=== PATIENT | male | born 1950 | race Caucasian/White ===

== ENCOUNTER 2017-04-05 00:25 | Inpatient (IN) | payer BC ==
--- NOTE | ~2017-04-05 | HP ---
History And Physical [place] [id number] [facility] [place]. [address] NAME: ASHLEY LOZANO SR : 54 STATUS : ADM IN LOCATED WITHIN [facility]#: [id number] AGE: 66 ADM/REG DATE : 04/05/17 MR#: [id number] REPORT SERV DATE: 04/05/17 DICTATED BY: SALLY BAZAN JR. DATE: 04/05/17 REPORT STATUS : Draft TRANSCRIBED BY: STEPHANIE DATE: 04/05/17 DATE OF ADMISSION: 04/05/2017 CHIEF COMPLAINT: Chest pain. HISTORY OF PRESENT ILLNESS: Kwan is a 66-year-old white male with diabetes and hypertension. He has had precordial chest pain for the last two days. He thought it might be heartburn or a muscle pull. It got worse around dinnertime tonight, finally prompting ER presentation. On arrival, the patient was found to have an inferoposterior MN consistent with ST elevation myocardial infarction. STEMI protocol was employed. PAST MEDICAL HISTORY: He has hypertension and insulin-requiring diabetes. He denies hyperlipidemia, renal insufficiency, prior TIA, or stroke. ALLERGIES: ARE DENIED. CURRENT MEDICATIONS: Please see his home medication sheet, which was reviewed. SOCIAL HISTORY: He does not use tobacco products, abuse alcohol, or use recreational drugs. FAMILY HISTORY: Negative for premature vascular events. REVIEW OF SYSTEMS: He denies fever, chills, bleeding diathesis, sudden weight gain or weight loss. Remainder of his HPI is negative. PHYSICAL EXAMINATION: GENERAL: Uncomfortable male, but in no acute distress. HEENT: Anicteric, no scleral injection, no oral lesions. NECK: No JVD, supple, no bruits. LUNGS: Clear to auscultation. No hyperexpansion. CARDIOVASCULAR: Regular rate and rhythm with no murmur, rub or gallop. ABDOMEN: Soft, nontender. Normoactive bowel sounds, no hepatosplenomegaly. EXTREMITIES: No clubbing, cyanosis or edema. SKIN: No visible rashes. NEURO/PSY: Normal affect, alert and oriented x 3. VITAL SIGNS: Blood pressure 153/88, heart rate 59, respirations 16. EKG: EKG reveals inferoposterior MN. MEDICAL DECISION MAKIN. Late-presentation inferoposterior MN. The patient has had symptoms for [address] elevation consistent with STEMI. He has persistent chest pain. Because of this, he will be taken emergently to the cardiac catheterization laboratory for coronary angiography and percutaneous intervention. The risks were verbally explained and verbally accepted. History And Physical [address] [address] NAME: ASHLEY LOZANO SR : 54 STATUS : ADM IN LOCATED WITHIN [facility]#: [id number] AGE: 66 ADM/REG DATE : 04/05/17 MR#: [id number] REPORT SERV DATE: 04/05/17 DICTATED BY: SALLY BAZAN JR. DATE: 04/05/17 REPORT STATUS : Draft TRANSCRIBED BY: STEPHANIE DATE: 04/05/17 2. Mixed hyperlipidemia. We will institute intensive statin therapy. 3. Diabetes type 2. We will adjust medicines as needed during the hospital stay. 4. Hypertension. We will adjust medications as needed during the hospital stay. ELVA/LISETHL Sally Bazan Jr., M.D. / [id number] CC: Vinod Simms Jr., M.D.
[~2017-04-05 00:25] MED LIST: ALEVE220 MG PO; APRES25 PO; ASAB PO; GLUCOPHAGE1000 MG PO; LANTUS SC; NEUR300 PO; NEUR600 PO; NORV10 PO; NORV5 PO; PREV30 PO; PRIN20 PO; TOPXL25 PO; TOPXL50 PO
[2017-04-05] MEDS ORDERED: PREV30 PO (00:35)
[2017-04-05] MEDS ORDERED: GLUCOPHAGE1000 MG PO (00:35)
[2017-04-05] MEDS ORDERED: NEUR300 PO (00:35)
[2017-04-05] MEDS ORDERED: LANTUS SC (00:35)
[2017-04-05 00:37] LABS: BASOPHILS 0.4 %; BASOPHILS ABSOLUTE 0.07 10/3/uL (0.0-0.16); EOSINOPHILS 1.3 %; EOSINOPHILS ABSOLUTE 0.22 10/3/uL (0.0-0.53); HEMATOCRIT 42.5 % (40.0-51.0); HEMOGLOBIN 15.2 g/dL (13.6-17.8); IMMATURE GRANULOCYTES 0.4 %; LYMPHOCYTES 13.4 %; LYMPHOCYTES ABSOLUTE 2.22 10/3/uL (0.67-4.30); MEAN CORPUS HGB CONC 35.8 g/dL (32.0-36.0); MEAN CORPUSCULAR HEMOGLOB 31.2 pg (26.0-34.0); MEAN CORPUSCULAR VOLUME 87.3 fL (80-100); MEAN PLATELET VOLUME 10.7 fL (9.2-13.0); MONOCYTES 5.8 %; MONOCYTES ABSOLUTE 0.96 10/3/uL (0.21-1.20); NEUTROPHILS 78.7 %; NEUTROPHILS ABSOLUTE 13.04 10/3/uL (2.02-8.40); PLATELET COUNT 248 10/3/uL (150-400); RBC DISTRIBUTION WIDTH 13.2 % (12.0-16.0); RED CELL COUNT 4.87 10/6/uL (4.7-6.1)
[2017-04-05] MEDS ORDERED: ASABAYER PO (00:37)
[2017-04-05] MEDS ORDERED: ADVIL PO (00:37)
[2017-04-05] MEDS ORDERED: TOPXL50 PO (00:37)
[2017-04-05 00:40] LABS: ER CBC TAT 0 Hrs 01 Mins; IMMATURE GRANULOCYTES ABSOLUTE 0.06 10/3/uL (0.0-0.11); MANUAL DIFF NO %; WHITE BLOOD CELLS 16.6 10/3/uL (4.5-10.5)
[2017-04-05 00:46] LABS: PARTIAL THROMBO TIME 28.3 SEC (22.5-37.2)
[2017-04-05 00:55] LABS: BUN (BLOOD UREA NITROGEN) 14 MG/DL (6-23); CALCIUM, SERUM 8.8 MG/DL (8.5-10.4); CHEST PAIN PROFILE TAT 0 Hrs 00 Mins; CHLORIDE, SERUM 105 MMOL/L (96-112); CO2 (CARBON DIOXIDE) 29 MMOL/L (24-34); CREATININE 0.89 MG/DL (0.70-1.30); GFR AFRICAN AMERICAN 105 ML/MIN (>=60); GFR NON AFRICAN AMERICAN 90 ML/MIN (>=60); GLUCOSE, SERUM 244 MG/DL (60-99); POTASSIUM, SERUM 3.6 MMOL/L (3.5-5.3); SODIUM, SERUM 139 MMOL/L (135-148); TROPONIN I 1.02 NG/ML (<0.05)
[2017-04-05 01:09] LABS: BAND NEUTROPHILS 6 %; BASOPHILS 1 %; BASOPHILS ABSOLUTE (CALC) 0.17 10/3/uL (0.0-0.16); EOSINOPHILS 3 %; ER DIFF TAT 0 Hrs 30 Mins; LYMPHOCYTES 15 %; LYMPHOCYTES ABSOLUTE (CALC) 2.49 10/3/uL (0.67-4.30); MONOCYTES 3 %; NEUTROPHILS ABSOLUTE (CALC) 12.95 10/3/uL (2.02-8.40); PLATELET ESTIMATE ADQ (ADEQUATE); RBC MORPHOLOGY NORM (NORMAL); SEGMENTED NEUTROPHIL (0) 72 %; TOTAL NUCLEATED CELLS 100
[2017-04-05 03:27] LABS: BASOPHILS 0.2 %; BASOPHILS ABSOLUTE 0.03 10/3/uL (0.0-0.16); EOSINOPHILS 0.1 %; EOSINOPHILS ABSOLUTE 0.02 10/3/uL (0.0-0.53); HEMATOCRIT 40.6 % (40.0-51.0); HEMOGLOBIN 14.6 g/dL (13.6-17.8); IMMATURE GRANULOCYTES 0.3 %; IMMATURE GRANULOCYTES ABSOLUTE 0.05 10/3/uL (0.0-0.11); LYMPHOCYTES 6.6 %; LYMPHOCYTES ABSOLUTE 0.98 10/3/uL (0.67-4.30); MEAN CORPUSCULAR HEMOGLOB 31.1 pg (26.0-34.0); MEAN CORPUSCULAR VOLUME 86.6 fL (80-100); MEAN PLATELET VOLUME 10.5 fL (9.2-13.0); MONOCYTES 3.9 %; MONOCYTES ABSOLUTE 0.58 10/3/uL (0.21-1.20); NEUTROPHILS 88.9 %; NEUTROPHILS ABSOLUTE 13.15 10/3/uL (2.02-8.40); PLATELET COUNT 221 10/3/uL (150-400); RBC DISTRIBUTION WIDTH 13.2 % (12.0-16.0); RED CELL COUNT 4.69 10/6/uL (4.7-6.1); WHITE BLOOD CELLS 14.8 10/3/uL (4.5-10.5)
[2017-04-05 03:29] LABS: MANUAL DIFF NO %
[2017-04-05 04:15] LABS: BUN (BLOOD UREA NITROGEN) 12 MG/DL (6-23); CALCIUM, SERUM 8.3 MG/DL (8.5-10.4); CHLORIDE, SERUM 107 MMOL/L (96-112); CHOL/HDL RATIO(NOT ORDER) 4.2 (0-5); CHOLESTEROL 138 MG/DL (< 200); CPK 2518 U/L (0-200); CREATININE 0.69 MG/DL (0.70-1.30); GFR AFRICAN AMERICAN 116 ML/MIN (>=60); GFR NON AFRICAN AMERICAN 100 ML/MIN (>=60); GLUCOSE, SERUM 235 MG/DL (60-99); HDL CHOLESTEROL 33 MG/DL (> 39); LDL CHOLESTEROL 71 MG/DL (< 130); NON-HDL CHOLESTEROL 105 MG/DL (< 160); SODIUM, SERUM 137 MMOL/L (135-148); TRIGLYCERIDE 174 MG/DL (< 150)
[2017-04-05 04:17] LABS: CKMB INDEX (NOT ORD) 7.4; CO2 (CARBON DIOXIDE) 22 MMOL/L (24-34)
[2017-04-05 11:24] LABS: CK-MB 199.7 NG/ML; CKMB INDEX (NOT ORD) 9.3
[2017-04-05 22:10] LABS: CK-MB 98.6 NG/ML
[2017-04-06 03:41] LABS: BASOPHILS 0.3 %; BASOPHILS ABSOLUTE 0.03 10/3/uL (0.0-0.16); EOSINOPHILS 0.7 %; EOSINOPHILS ABSOLUTE 0.08 10/3/uL (0.0-0.53); HEMOGLOBIN 13.9 g/dL (13.6-17.8); IMMATURE GRANULOCYTES 0.4 %; IMMATURE GRANULOCYTES ABSOLUTE 0.04 10/3/uL (0.0-0.11); LYMPHOCYTES 19.1 %; LYMPHOCYTES ABSOLUTE 2.14 10/3/uL (0.67-4.30); MEAN CORPUS HGB CONC 34.8 g/dL (32.0-36.0); MEAN CORPUSCULAR HEMOGLOB 30.8 pg (26.0-34.0); MEAN CORPUSCULAR VOLUME 88.5 fL (80-100); MEAN PLATELET VOLUME 10.6 fL (9.2-13.0); MONOCYTES 9.7 %; MONOCYTES ABSOLUTE 1.09 10/3/uL (0.21-1.20); NEUTROPHILS 69.8 %; NEUTROPHILS ABSOLUTE 7.81 10/3/uL (2.02-8.40); PLATELET COUNT 217 10/3/uL (150-400); RBC DISTRIBUTION WIDTH 13.4 % (12.0-16.0); RED CELL COUNT 4.52 10/6/uL (4.7-6.1); WHITE BLOOD CELLS 11.2 10/3/uL (4.5-10.5)
[2017-04-06 03:44] LABS: MANUAL DIFF NO %
[2017-04-06 03:57] LABS: CALCIUM, SERUM 8.2 MG/DL (8.5-10.4); CHLORIDE, SERUM 107 MMOL/L (96-112); CK-MB 43.3 NG/ML; CPK 986 U/L (0-200); CREATININE 0.82 MG/DL (0.70-1.30); GFR AFRICAN AMERICAN 108 ML/MIN (>=60); GFR NON AFRICAN AMERICAN 93 ML/MIN (>=60); POTASSIUM, SERUM 3.6 MMOL/L (3.5-5.3); SODIUM, SERUM 140 MMOL/L (135-148)
[2017-04-06 03:58] LABS: BUN (BLOOD UREA NITROGEN) 16 MG/DL (6-23); CKMB INDEX (NOT ORD) 4.4; CO2 (CARBON DIOXIDE) 27 MMOL/L (24-34); GLUCOSE, SERUM 163 MG/DL (60-99)
[2017-04-07 06:33] LABS: BASOPHILS 0.4 %; BASOPHILS ABSOLUTE 0.04 10/3/uL (0.0-0.16); EOSINOPHILS 1.6 %; EOSINOPHILS ABSOLUTE 0.17 10/3/uL (0.0-0.53); HEMOGLOBIN 13.8 g/dL (13.6-17.8); IMMATURE GRANULOCYTES 0.4 %; IMMATURE GRANULOCYTES ABSOLUTE 0.04 10/3/uL (0.0-0.11); LYMPHOCYTES 21.5 %; LYMPHOCYTES ABSOLUTE 2.32 10/3/uL (0.67-4.30); MEAN CORPUS HGB CONC 34.5 g/dL (32.0-36.0); MEAN CORPUSCULAR HEMOGLOB 30.7 pg (26.0-34.0); MEAN CORPUSCULAR VOLUME 89.1 fL (80-100); MEAN PLATELET VOLUME 10.7 fL (9.2-13.0); MONOCYTES 11.8 %; MONOCYTES ABSOLUTE 1.27 10/3/uL (0.21-1.20); NEUTROPHILS 64.3 %; NEUTROPHILS ABSOLUTE 6.96 10/3/uL (2.02-8.40); PLATELET COUNT 216 10/3/uL (150-400); RBC DISTRIBUTION WIDTH 13.4 % (12.0-16.0); RED CELL COUNT 4.49 10/6/uL (4.7-6.1); WHITE BLOOD CELLS 10.8 10/3/uL (4.5-10.5)
[2017-04-07 06:34] LABS: MANUAL DIFF NO %
[2017-04-07 06:41] LABS: BUN (BLOOD UREA NITROGEN) 19 MG/DL (6-23); CALCIUM, SERUM 8.8 MG/DL (8.5-10.4); CHLORIDE, SERUM 108 MMOL/L (96-112); CO2 (CARBON DIOXIDE) 26 MMOL/L (24-34); CREATININE 0.88 MG/DL (0.70-1.30); GFR AFRICAN AMERICAN 105 ML/MIN (>=60); GFR NON AFRICAN AMERICAN 91 ML/MIN (>=60); SODIUM, SERUM 140 MMOL/L (135-148)
[2017-04-07 06:42] LABS: GLUCOSE, SERUM 127 MG/DL (60-99)
[2017-04-07] MEDS ORDERED: COREG3 PO (10:45)
[2017-04-07] MEDS ORDERED: LIPITOR80 MG PO (10:45)
[2017-04-07] MEDS ORDERED: PRIN2.5 PO (10:47)
[2017-04-07] MEDS ORDERED: EFFIENT10 PO (10:48)
[2017-04-07] MEDS ORDERED: ADVIL PO (10:51)
[2017-04-07] MEDS ORDERED: NTG150 SL (10:53)
== END 2017-04-07 11:56 | disposition home or self-care (01) | DRG 247 ==
LOC: ER 00:25 → SSU2 00:27 → CCU 02:50 → 7NO 16:42
PROVIDERS: Emergency Medicine; Internal Medicine Cardiovascular Disease; Internal Medicine Interventional Cardiology
PROC: 027035Z Dilation of Coronary Artery, One Artery with Two Drug-eluting Intraluminal Devices, Percutaneous Approach (ICD-10-PCS; principal; 2017-04-05)
PROC: 4A023N7 Measurement of Cardiac Sampling and Pressure, Left Heart, Percutaneous Approach (ICD-10-PCS; 2017-04-05)
PROC: B2151ZZ Fluoroscopy of Left Heart using Low Osmolar Contrast (ICD-10-PCS; 2017-04-05)
PROC: B2111ZZ Fluoroscopy of Multiple Coronary Arteries using Low Osmolar Contrast (ICD-10-PCS; 2017-04-05)
DX: I21.11 ST elevation (STEMI) myocardial infarction involving right coronary artery (principal); I10 Essential (primary) hypertension; I25.10 Atherosclerotic heart disease of native coronary artery without angina pectoris; E11.9 Type 2 diabetes mellitus without complications; Z79.4 Long term (current) use of insulin; E78.2 Mixed hyperlipidemia
CPT/HCPCS: 71010; 80048; 80061; 82550; 82553; 82962; 83036; 83735; 84484; 85025; 85610; 85730; 87641; 93005; 93306; 93458; 96374; 99152; 99153; 99285; A9270-GY; C1725; C1769; C1874; C1887; C1894; C9600; J0583; J1652; J2250; J3010; J3475; Q9967